=== PATIENT | female | born 1995 | race Caucasian/White ===

== ENCOUNTER 2017-04-20 05:16 | Emergency (ER) | payer MEDICAID ==
--- NOTE | 2017-04-20 05:22 | EDPHY ---
H & P HPI/ROS: HPI CHIEF COMPLAINT: Dizziness, ear discomfort HISTORY OF PRESENT ILLNESS: Patient is a very pleasant 22-year-old female she is otherwise healthy no significant medical history does not take any daily medications she presents emergency room with dizziness. She describes as room spinning. She states yesterday she had some ear pain. She put peroxide in her left ear as it was giving her discomfort and she thought maybe she had ear wax in it. This did give her some relief. She developed dizziness yesterday around 4:30 p.m.. She was able to go to sleep last night. But woke up early this morning around 4:00 a.m. with ongoing dizziness. Room spinning sensation. She denies ringing ears. She denies chest pain or shortness of breath. Neck pain or headache. Denies focal weakness or numbness or tingling. She does complain of worsening dizziness with movement of her head. Left ear fullness. And pain. She has never had this before. Past Medical History: No significant medical history Past Surgical History: No significant surgical history Social History: Denies drugs alcohol tobacco. Family History: Noncontributory ROS REVIEW OF SYSTEMS: A comprehensive 10 point review of systems is otherwise negative aside from elements mentioned in the history of present illness. Exam Constitutional appears well nontoxic, triage nursing summary reviewed, vital signs reviewed, awake/alert. Eyes normal conjunctivae and sclera, EOMI, PERRLA. HENT posterior pharynx is normal however bilateral TMs are inflamed, bulging discs bilaterally, erythematous, fluid behind both TM moist mucus membranes, no epistaxis, neck supple/ no meningismus, no raccoon eyes. Respiratory clear to auscultation bilaterally, normal breath sounds, no respiratory distress, no wheezing. Cardiovascular rate normal, regular rhythm, no murmur, no edema, distal pulses normal. Gastrointestinal soft, non-tender, no rebound, no guarding, normal bowel sounds, no distension, no pulsatile mass. Genitourinary no CVA tenderness. Musculoskeletal no midline vertebral tenderness, full range of motion, no calf swelling, no tenderness of extremities, no meningismus, good pulses, neurovascularly intact. Skin pink, warm, & dry, no rash, skin atraumatic. Neurologic awake, alert and oriented x 3, AAOx3, moves all 4 extremities equally, motor intact, sensory intact, CN II-XII intact, normal cerebellar, normal vision, normal speech. Psychiatric normal mood/affect. Heme/Lymph/Immune no lymphadenopathy. Differential Diagnosis: Includes but is not limited to in a particular order benign vertigo, Meniere's disease, electrolyte disturbance, dehydration, inner ear crystal imbalance, otitis media. Medical Decision Making: Plan for this patient IV establishment with IV fluid bolus, IV Valium for dizziness and nausea, p. o. meclizine, check basic blood work. Re-evaluate. EKG. Re-evaluation: EKG interpretation by me on record in [employer] system. Impression time of EKG 6:00 a.m., this is sinus rhythm rate of 73. No signs of acute ischemia. No signs of prolonged intervals. No signs of cardiac arrhythmia. Unremarkable EKG. 0624AM: Patient is feeling better with IV fluids Valium and meclizine however began to have vomiting. We medicated with IV fluids again and IV Valium 2.5 mg as well as IV Zofran 4 mg. 0638AM: Patient is feeling much better after medication. She states her dizziness and nausea has resolved. Will ambulate her to make sure she is stable gait. Her CT scan of her head was unremarkable. No bleed or tumor. Her blood work is reassuring. She is feeling better. Prescription given for amoxicillin, Mucinex, meclizine and Zofran. ENT referral for dizziness and ear pain and fullness. Additionally she understands return emergency room if she develops worsening symptoms includes worsening dizziness, vomiting or not feeling well. Today she understands stay well-hydrated drink lots of fluids take it easy. Return to the ER for worsening symptoms. Return precautions given to her. 0646AM: She ambulated well to the bathroom no vomiting no dizziness. Feels well. Would like to go home. UA pending. Return precautions given. Discussed this with mom and dad at bedside. Source: Patient - Medical/Surgical History Hx Asthma: No Hx Chronic Respiratory Disease: No Hx Diabetes: No Hx Cardiac Disease: No Hx Renal Disease: No Hx Cirrhosis: No Hx Alcoholism: No Hx HIV/AIDS: No Hx Splenectomy or Spleen Trauma: No Other PMH: PT DENIES - Social History Smoking Status: Never smoked Constitutional: Initial Vital Signs Heart Rate 94 04/20/17 05:22 Respiratory Rate 18 04/20/17 05:22 Blood Pressure 137/86 H 04/20/17 05:22 O2 Sat (%) 95 04/20/17 05:22 O2 Delivery Mode Room Air Allergies/Adverse Reactions: No Known Allergies Allergy (Unverified 04/20/17 05:21) Home Medications: Medication Instructions Recorded Amoxicillin Trihydrate [Amoxil] 500 mg PO TID 7 Days cap 04/20/17 Meclizine HCl [Meclizine HCl 25 mg 25 mg PO BID #10 tab 04/20/17 (RX,OTC)] Ondansetron HCl [Zofran] 4 mg PO Q4-6PRN PRN #10 tablet 04/20/17 guaiFENesin [Guaifenesin ER] 600 mg PO BID #14 tab.er.12h 04/20/17 Medical Decision Making - Data Points Laboratory Results: Laboratory Results 04/20/17 05:40 04/20/17 05:40 04/20/17 04/20/17 04/20/17 05:40 05:40 05:40 WBC 6.61 10^3/uL 10^3/uL (3.80-9.50) RBC 4.94 10^6/uL 10^6/uL (4.18-5.33) Hgb 15.0 g/dL g/dL (12.6-16.3) Hct 42.0 % % (38.0-47.0) MCV 85.0 fL fL (81.5-99.8) MCH 30.4 pg pg (27.9-34.1) MCHC 35.7 g/dL g/dL (32.4-36.7) RDW 12.5 % % (11.5-15.2) Plt Count 220 10^3/uL 10^3/uL (150-400) MPV 10.7 fL fL (8.7-11.7) Neut % (Auto) 55.8 % % (39.3-74.2) Lymph % (Auto) 34.5 % % (15.0-45.0) Sawyer % (Auto) 7.3 % % (4.5-13.0) Eos % (Auto) 1.8 % % (0.6-7.6) Baso % (Auto) 0.3 % % (0.3-1.7) Nucleat RBC Rel Count 0.0 % % (0.0-0.2) Absolute Neuts (auto) 3.69 10^3/uL 10^3/uL (1.70-6.50) Absolute Lymphs (auto) 2.28 10^3/uL 10^3/uL (1.00-3.00) Absolute Monos (auto) 0.48 10^3/uL 10^3/uL (0.30-0.80) Absolute Eos (auto) 0.12 10^3/uL 10^3/uL (0.03-0.40) Absolute Basos (auto) 0.02 10^3/uL 10^3/uL (0.02-0.10) Absolute Nucleated RBC 0.00 10^3/uL 10^3/uL (0-0.01) Immature Gran % 0.3 % % (0.0-1.1) Immature Gran # 0.02 10^3/uL 10^3/uL (0.00-0.10) Sodium 138 mEq/L mEq/L (134-144) Potassium 3.7 mEq/L mEq/L (3.5-5.2) Chloride 105 mEq/L mEq/L (97-110) Carbon Dioxide 21 mEq/l L mEq/l (22-31) Anion Gap 12 mEq/L mEq/L (8-16) BUN 15 mg/dL mg/dL (7-23) Creatinine 0.8 mg/dL mg/dL (0.6-1.0) Estimated GFR > 60 Glucose 106 mg/dL H mg/dL (70-100) Calcium 9.9 mg/dL mg/dL (8.5-10.4) Magnesium 1.7 mg/dL mg/dL (1.6-2.3) Beta HCG, Qual NEGATIVE Medications Given: Discontinued Medications Diazepam (Valium Injection) 2.5 mg IVP EDNOW ONE Stop: 04/20/17 05:34 Last Admin: 04/20/17 05:46 Dose: 2.5 mg Diazepam (Valium Injection) 2.5 mg IVP EDNOW ONE Stop: 04/20/17 06:19 Last Admin: 04/20/17 06:22 Dose: 2.5 mg Sodium Chloride (Ns) 1,000 mls @ 0 mls/hr IV EDNOW ONE; Wide Open PRN Reason: Protocol Stop: 04/20/17 05:33 Last Admin: 04/20/17 05:39 Dose: 1,000 mls Sodium Chloride (Ns) 1,000 mls @ 0 mls/hr IV ONCE ONE PRN Reason: Wide Open Stop: 04/20/17 06:19 Last Admin: 04/20/17 06:22 Dose: 1,000 mls Meclizine HCl (Meclizine Hcl) 25 mg PO EDNOW ONE Stop: 04/20/17 05:34 Last Admin: 04/20/17 05:46 Dose: 25 mg Ondansetron HCl (Zofran) 4 mg IVP EDNOW ONE Stop: 04/20/17 06:19 Last Admin: 04/20/17 06:20 Dose: 4 mg Departure - Departure Disposition: Home, Routine, Self-Care Clinical Impression: Dizziness Otitis media of both ears Qualifiers: Otitis media type: unspecified Qualified Code(s): H66.93 - Otitis media, unspecified, bilateral Condition: Good Instructions: Guaifenesin (By mouth), Meclizine (By mouth), Amoxicillin (By mouth), Ondansetron (By mouth), Otitis Media (ED), Dizziness (ED) Additional Instructions: 1. Make sure to drink lots of fluids stay well-hydrated. 2. Return emergency room if develops worsening pain dizziness vomiting or you do not feel well. 3. Antibiotic as prescribed. 4. Zofran if nauseous. 5. Mucinex for decongestion. Referrals: Jose Garcia MD [Medical Doctor] - As per Instructions Prescriptions: Amoxicillin Trihydrate [Amoxil] 500 mg PO TID 7 Days cap guaiFENesin [Guaifenesin ER] 600 mg PO BID #14 tab.er.12h Meclizine HCl [Meclizine HCl 25 mg (RX,OTC)] 25 mg PO BID #10 tab Ondansetron HCl [Zofran] 4 mg PO Q4-6PRN PRN #10 tablet PRN Reason: Nausea/Vomiting, Use 1st
[2017-04-20 05:24] VITALS: RESP 18
[2017-04-20] MEDS ORDERED: ONDANSETRON 4 MG/2 ML VIAL ONE (05:32)
[2017-04-20] MEDS ORDERED: NS 1,000 ML IV ONE ×2 (05:32→06:18)
[2017-04-20] MEDS ORDERED: DIAZEPAM 10 MG/2 ML SYR IVP ONE ×2 (05:33→06:18)
[2017-04-20] MEDS ORDERED: MECLIZINE HCL 25 MG TAB PO ONE (05:33)
--- NOTE | 2017-04-20 06:02 | CPEKG ---
Heart Rate: 73 RR Interval: 822 P-R Interval: 160 QRSD Interval: 104 QT Interval: 396 QTC Interval: 437 P Gloster: 74 QRS Gloster: 69 T Wave Gloster: 32 EKG Severity - NORMAL ECG - EKG Impression: SINUS RHYTHM Electronically Signed By: Boubacar Zimmerman 20-Apr-2017 09:34:21
[2017-04-20 06:03] LABS: % IMMATURE GRANULYOCYTES 0.3 % (0.0-1.1); ABSOLUTE IMMATURE GRANULOCYTES 0.02 10^3/uL (0.00-0.10); ADD DIFF? NO; ADD MORPH? NO; ADD SCAN? NO; ATYPICAL LYMPHOCYTE FLAG 10 (0-99); FRAGMENT RBC FLAG 0 (0-99); LEFT SHIFT FLG 0 (0-99); LIPEMIA HEMOLYSIS FLAG 90 (0-99); MEAN CELL HEMOGLOBIN 30.4 pg (27.9-34.1); MEAN CELL HEMOGLOBIN CONCENTR. 35.7 g/dL (32.4-36.7); MEAN PLATELET VOLUME 10.7 fL (8.7-11.7); PLATELET CLUMPS FLAG 10 (0-99); PLATELET COUNT 220 10^3/uL (150-400); RED BLOOD CELL COUNT 4.94 10^6/uL (4.18-5.33); RED CELL DISTRIBUTION WIDTH 12.5 % (11.5-15.2)
[2017-04-20 06:09] LABS: ANION GAP 12 mEq/L (8-16); CALCIUM 9.9 mg/dL (8.5-10.4); CARBON DIOXIDE 21 mEq/l (22-31); CHLORIDE 105 mEq/L (97-110); CREATININE 0.8 mg/dL (0.6-1.0); GLOMERULAR FILTRATION RATE > 60; GLUCOSE 106 mg/dL (70-100); MAGNESIUM 1.7 mg/dL (1.6-2.3); POTASSIUM 3.7 mEq/L (3.5-5.2); SODIUM 138 mEq/L (134-144)
[2017-04-20] MEDS ORDERED: ONDANSETRON 4 MG/2 ML VIAL IVP ONE (06:18)
[2017-04-20 06:33] VITALS: PULSE 64
[2017-04-20 06:54] LABS: COLOR YELLOW; LEUKOCYTE ESTERASE,URINE TRACE (NEGATIVE); NITRITE,URINE NEGATIVE (NEGATIVE)
[2017-04-20 06:58] LABS: MUCUS TRACE /lpf (NONE-1+)
[2017-04-20 07:27] VITALS: BP 106/73; TEMP 97.5; O2SAT 98
== END 2017-04-20 07:28 | disposition home or self-care (01) ==
DX: R42 Dizziness and giddiness (principal); H66.93 Otitis media, unspecified, bilateral; E86.9 Volume depletion, unspecified
CPT/HCPCS: 96374; J2405